=== PATIENT | male | born 1985 | race Caucasian/White ===

== ENCOUNTER 2018-11-05 10:38 | Emergency (ER) | payer OTHER ==
[~2018-11-05] VITALS: Ht 165.1 cm; Wt 70.3 kg
[2018-11-05] MEDS ORDERED: HYDROCODONE/APAP 5-325MG TABLET PO ONE (11:00)
[2018-11-05] MEDS ORDERED: HYDROCODONE/APAP 5-325MG TABLET ONE (11:10)
[2018-11-05] MEDS ORDERED: KETOROLAC TROMETHAMINE 60 MG INJ IM ONE ×2 (11:28→11:30)
[2018-11-05] MEDS ORDERED: TDAP DIPH,PERTUSS,TET VAC/PF 0.5 ML DISP.SYRIN IM ONE ×2 (11:45→11:59)
[2018-11-05] MEDS ORDERED: ONDANSETRON 4 MG/2 ML VIAL IV ONE (12:00)
[2018-11-05] MEDS ORDERED: IV NORMAL SALINE 1000 ML BAG IV ONE (12:00)
--- NOTE | 2018-11-05 12:05 | NUR ---
No EKG done(cancelled by MD 2/2 error in ordering).
[2018-11-05] MEDS ORDERED: OLANZAPINE 10 MG VIAL IM ONE (12:15)
--- NOTE | 2018-11-05 12:37 | NUR ---
Patient discharged to home in stable conditon by DEUCE Mercado. Written and verbal after care instructions given to patient and spouse. Patient and family verbalized understanding & compliance of instructions to follow up with his work MD/medical provider 03/09 this injury happened while at work.
== END 2018-11-05 12:37 | disposition home or self-care (01) ==
LOC: ER 10:38
DX: S60.221A Contusion of right hand, initial encounter (principal); F17.200 Nicotine dependence, unspecified, uncomplicated; W23.0XXA Caught, crushed, jammed, or pinched between moving objects, initial encounter; Y93.89 Activity, other specified; Y92.89 Other specified places as the place of occurrence of the external cause; Y99.8 Other external cause status
CPT/HCPCS: 29105; 73130; 90471; 90715; 96372; 99283; J1885; A4663